=== PATIENT | male | born 1935 | race Caucasian/White ===

== ENCOUNTER → 2017-03-28 | Outpatient (CLI) | payer MEDICARE, OTHER ==
[2011-10-12 10:02] VITALS: BP 147/79
== END ==
LOC: LAB 07:36
DX: E11.8 Type 2 diabetes mellitus with unspecified complications (principal); E78.5 Hyperlipidemia, unspecified

== ENCOUNTER → 2017-07-18 | Outpatient (CLI) | payer MEDICARE, OTHER ==
[~2017-07-18] VITALS: Ht 167.6 cm; Wt 98.6 kg
[~2017-07-18] MED LIST: ASPIRIN E.C. 8181 MG PO; CALCIUM CARBON600 M1 PO; GLUCOTROL XL5 MG/TAB PO; GOOD NEIGHBOR180 MG PO; LISINOPRIL10 MG PO; METFOMIN HYDRO850 MG PO; SIMVASTATIN40 M1 PO; VITAMIN C500 M7 PO
[2017-07-18 09:45] VITALS: BP 134/80
[2017-07-18 09:52] LABS: BUN/CREATININE RATIO 23.4 (6.0-26.0); CALCIUM 9.1 mg/dL (8.4-10.2); POTASSIUM 4.7 mmol/L (3.6-5.0)
== END ==
LOC: LAB 09:27 → AMSURD 09:27
PROVIDERS: Nurse Practitioner Family
DX: E11.9 Type 2 diabetes mellitus without complications (principal); I10 Essential (primary) hypertension; E78.2 Mixed hyperlipidemia; D63.8 Anemia in other chronic diseases classified elsewhere; I49.9 Cardiac arrhythmia, unspecified

== ENCOUNTER → 2017-12-04 | Outpatient (CLI) | payer MEDICARE, OTHER ==
[2017-07-18 09:45] VITALS: BP 134/80
== END ==
LOC: RAD 07:53
DX: R13.10 Dysphagia, unspecified (principal); T17.308A Unspecified foreign body in larynx causing other injury, initial encounter; Z88.8 Allergy status to other drugs, medicaments and biological substances
CPT/HCPCS: G8997-GN

== ENCOUNTER → 2017-12-19 | Day surgery (SDC) | payer MEDICARE, OTHER ==
[2017-07-18 09:45] VITALS: BP 134/80
== END ==
LOC: MSO 10:20
DX: R13.10 Dysphagia, unspecified (principal); K22.2 Esophageal obstruction; E11.9 Type 2 diabetes mellitus without complications; E78.5 Hyperlipidemia, unspecified
CPT/HCPCS: 00731; A4649; C1726; J2704; J7030

== ENCOUNTER 2018-08-10 20:42 | Emergency (ER) | payer MEDICARE, OTHER ==
[~2018-08-10] VITALS: Ht 167.6 cm; Wt 98.6 kg
[2018-08-10 22:05] VITALS: BP 110/77
[2018-08-11] MEDS ORDERED: MULTIVITAMIN1 SGL PO (01:38)
[2018-08-11] MEDS ORDERED: LASIX20 M1 PO (01:39)
[2018-08-11] MEDS ORDERED: POTASSIUM CHLO20 ME3 PO (01:40)
[2018-08-11] MEDS ORDERED: FOLIC ACID1 MG PO (01:41)
[2018-08-11] MEDS ORDERED: REMERON15 MG PO (01:42)
[2018-08-11] MEDS ORDERED: NATURE'S BLEND400 I1 PO (01:43)
[2018-08-11] MEDS ORDERED: B COMPLEX1 EACH PO (01:43)
== END 2018-08-10 22:17 | disposition short-term general hospital (02) ==
LOC: ED 20:42
DX: R40.20 Unspecified coma (principal); C25.9 Malignant neoplasm of pancreas, unspecified; I48.91 Unspecified atrial fibrillation; I95.9 Hypotension, unspecified; K22.8 Other specified diseases of esophagus
CPT/HCPCS: J7120